=== PATIENT | female | born 1975 | race Caucasian/White ===

== ENCOUNTER 2019-10-14 09:07 | Outpatient (CLI) | payer BC ==
[2019-10-14 10:42] LABS: BHCG - Serum Negative (NEGATIVE); Pregs Control Background? CLEAR/WHITE (CLR/WHITE); Pregs Control Bar Appear? YES (CONTROL BAR)
[2019-10-14 10:44] LABS: #Basophils 0.1 thou/uL (0.0-0.2); #Eosinphils 0.4 thou/uL (0.0-0.7); #Lymphocytes 2.8 thou/uL (1.20-3.40); #Monocytes 0.5 thou/uL (0.11-0.59); #Neutrophils 4.3 thou/uL (1.40-6.50); %Basophils 0.9 % (0.0-1.0); %Eosinophils 5.5 % (0.0-10.0); %Lymphocytes 34.7 % (21.0-51.0); %Monocytes 5.7 % (0.0-10.0); %Neutrophils 53.3 % (42.0-75.0); Hemoglobin 13.2 g/dL (12.0-16.0); Mean Corpuscular HGB CONC 32.6 g/dL (32.0-36.0); Mean Corpuscular Hemoglobin 30.4 pg (27.0-31.0); Mean Corpuscular Volume 93.3 fL (78.0-98.0); Mean Platelet Volume 8.4 fL (7.4-10.4); Platelet Count 241 thou/uL (130-400); RBC Distribution Width 12.4 % (11.5-14.5); Red Blood Cell (RBC) Count 4.35 mill/uL (4.20-5.40); White Blood Cell (WBC) Count 8.1 thou/uL (4.8-10.8)
[2019-10-14 10:54] LABS: Anion Gap 12 mmol/L (10-20); BUN (Urea Nitrogen) 16 mg/dL (7.0-18.7); Calc. Creatinine Clearance 0 mL/min (70-130); Calcium 9.2 mg/dL (7.8-10.44); Carbon Dioxide 29 mmol/L (22-29); Chloride 100 mmol/L (98-107); Estimated GFR-MDRD Greater than 90; Glucose 164 mg/dL (70-105); Potassium 3.5 mmol/L (3.5-5.1); Sodium 137 mmol/L (136-145)
[2019-10-14 11:04] LABS: Clarity Clear (Clear)
[2019-10-14 11:05] LABS: Bacteria/HPF 1+ HPF (None Seen); Bilirubin Negative (Negative); Blood, Urine Negative (Negative); Glucose, Urine (Dipstick) 500 mg/dL (Negative); Leukocyte Negative Leu/uL (Negative); Nitrite Negative (Negative); Protein, Urine (Dipstick) Negative (Neg-Trace); RBC/HPF 0-3 HPF (0-3); Squamous Epithelial 0-3 HPF (0-3); Urobilinogen Normal mg/dL (Less than 2); WBC/HPF 0-3 HPF (0-3)
--- NOTE | 2019-10-14 12:36 | EKG ---
Test Reason : Blood Pressure : / mmHG Vent. Rate : 082 BPM Atrial Rate : 082 BPM P-R Int : 158 ms QRS Dur : 082 ms QT Int : 386 ms P-R-T Axes : 023 -05 -03 degrees QTc Int : 450 ms Normal sinus rhythm Minimal voltage criteria for LVH, may be normal variant Cannot rule out Anterior infarct , age undetermined Abnormal ECG No previous ECGs available Confirmed by DR. Dora WILLIS ([id number]) on 10/14/2019 12:36:16 PM Referred By: ROSA Confirmed By:DR. Dora WILLIS
== END 2019-10-14 09:08 | disposition home or self-care (01) ==
LOC: LABBT 09:07
PROVIDERS: ATTEND Orthopaedic Surgery Hand Surgery
DX: Z01.818 Encounter for other preprocedural examination (principal); G56.01 Carpal tunnel syndrome, right upper limb; G56.21 Lesion of ulnar nerve, right upper limb
CPT/HCPCS: 80048; 81001; 84703; 85025; 93005; 93010

== ENCOUNTER 2019-10-19 12:52 | Day surgery (SDC) | payer BC ==
[2019-10-14 09:19] VITALS: BMI 47.7
[~2019-10-19 12:52] MED LIST: Dexamethasone 20 MG/5 ML VIAL ONE; Lidocaine 1% PF 5 ML VIAL ONE; Ondansetron PF 4 MG/2 ML Vial ONE; PROPOFOL 200 MG/20 ML VIAL ONE
[2019-10-19] MEDS ORDERED: Bupivacaine PF 0.5% 30 ML VIAL ONE ×2 (15:51→18:02)
[2019-10-19] MEDS ORDERED: Sodium Chloride 0.9% 10 ML ONE (15:51)
[2019-10-19] MEDS ORDERED: Betamet Acet/Betamet Na Ph 30 MG/5 ML VIAL ONE (15:51)
[2019-10-19] MEDS ORDERED: Bacitracin Zinc Ointment 30 gm TUBE ONE (15:51)
[2019-10-19] MEDS ORDERED: Fentanyl 100 MCG/2 ML VIAL ONE ×2 (15:53→16:31)
--- NOTE | 2019-10-20 00:46 | OP ---
DATE OF PROCEDURE: 10/19/2019 PREOPERATIVE DIAGNOSES: 1. Right cubital tunnel syndrome. 2. Right carpal tunnel syndrome. POSTOPERATIVE DIAGNOSES: 1. Right cubital tunnel syndrome. 2. Right carpal tunnel syndrome. 3. Right olecranon bursectomy. ADDITIONAL FINDINGS: 1. Very thick olecranon bursa with early straw-colored fluid without infection. 2. Very compressed and constricted ulnar nerve especially the intermuscular septum and the primary cubital tunnel canal through early allograft compression median nerve within the carpal tunnel. PROCEDURES PERFORMED: 1. Right carpal tunnel release. 2. Right ulnar nerve transposition. 3. Right olecranon bursectomy. TOURNIQUET: Sterile, total time 52 minutes. ESTIMATED BLOOD LOSS: 20 mL. INDICATION: The patient with a history of severe small ring and intermittently long finger compression, failed conservative treatment, injection of carpal tunnel gave over 70% relief, but had positive EMGs and exam for cubital tunnel that was moderate to severe, Hines stage II. She also had intermittent elbow swelling, which made us think that she might have bursitis. DESCRIPTION OF PROCEDURE: After successful general endotracheal anesthesia, limb was prepped and draped. The entire shoulder was draped free to reveal the axilla and we were able to place a sterile tourniquet. We then outlined the incision, which was midline over the elbow slightly medialized to miss the center of the olecranon tip 7 cm distal to the olecranon and 9 cm proximal. We then outlined the carpal tunnel incision as well, which was in line with the ring finger, 2.5 cm long and as far distal as Araya's cardinal line approximately 5 mm distal to the volar wrist flexion crease. Both incisions were given 10 mL of 0.5% Marcaine rafael-incisional and we gave an additional 10 rafael-incisional at the olecranon wound. After inflation of the tourniquet to 250 mmHg pressure, we then entered the carpal tunnel outlined incision, carried through skin and subcutaneous tissue, visualized the palmaris. With self-retaining retractor, we pulled the palmaris and went into its central 1/3rd over the transverse carpal ligament and released it from the midpoint distally first and then from the midpoint proximally using combination of [place] blade, tenotomy scissors, but once was done, we explored the tendon. There was no excessive tenosynovitis, but there was an area of stippling and early allograft formation almost a cm long in the center canal. We could visualize the canals to be released. We placed 2 mL of Celestone along the nerve, closed it with interrupted 4-0 nylon in a mattress pattern. We then brought on a pack of tiles along with a heavy instrument case, placed the arm in a 90 degree elbow 90 degree shoulder over the chest position and made our approach to the elbow. We carried through skin and subcutaneous tissue, and dissected with a [place] blade and subcutaneous tissue laterally and with tenotomy scissors medially. We also dissected 4 cm anterior to the medial epicondyle tip stem for transposition. We visualized the ulnar nerve on the proximal portion of the incision tightly held by the fascia of the triceps. We released this as far proximal as 12 cm. I freed the nerve up from the triceps and beginning about 7 cm from the olecranon for possible transposition. We visualized that the cutaneous nerve branch and medial antebrachial and medial brachial cutaneous were still into the skin of the flap of the incision because it was so far centrally. We then noticed the patient had a copious amount of fat, so we developed a plane of fat that from the underlying medial epicondyle muscle or tendinous origins and then from the skin that could be used for transposition because she had available lipomatous tissue. We then freed the median nerve from the primary Landsmeer's ligament, where it was very tight, over 2 cm were approximately 1/3rd the diameter of the area leading into the primary cubital tunnel. There was also compression hilus of the intermuscular septum, so after release, the cubital tunnel area under direct visualization and the muscle over the tears of the flexor tendon, we then also released the intermuscular septum for 7.5 cm length. Now, we could then free the ulnar nerve completely to perform a transposition. This was the area almost 2 cm anterior to the medial epicondyle and was well covered by the lipomatous pocket we created. We then stitched the lipomatous pocket with the nerve transposed with no undue tension either within the pocket proximal/entrance or distal/exit. We used a 0 Vicryl to secure with multiple [id number] x6. The nerve did not move with 120 flexion or 0 degrees extension or anything in that range. We released the tourniquet. We placed Celestone nerve before closing the left palmaris pollicis. We then obtained hemostasis. We closed the wound with running 3-0 Monocryl for the epidermal closure and epidermis with interrupted 3-0 nylon mattress pattern. The patient left the operating room without evidence of anesthetic or operative complication. A long-arm splint was also applied. Job ID: [id number]
== END 2019-10-19 20:10 | disposition home or self-care (01) ==
LOC: SDC 12:52
PROVIDERS: ATTEND Orthopaedic Surgery Hand Surgery
PROC: 0MB30ZZ Excision of Right Elbow Bursa and Ligament, Open Approach (ICD-10-PCS; principal; 2019-10-19)
PROC: 01N50ZZ Release Median Nerve, Open Approach (ICD-10-PCS; principal; 2019-10-19)
DX: D21.11 Benign neoplasm of connective and other soft tissue of right upper limb, including shoulder (principal); G56.21 Lesion of ulnar nerve, right upper limb; G56.01 Carpal tunnel syndrome, right upper limb; I10 Essential (primary) hypertension; Z79.899 Other long term (current) drug therapy; Z87.891 Personal history of nicotine dependence
CPT/HCPCS: 88304; J0690; J0702; J1100; J2001; J2405; J2704; J3010; J3490; S0020